=== PATIENT | male | born 1980 | race Caucasian/White ===

== ENCOUNTER → 2021-04-19 09:48 | Outpatient (REF) | payer MEDICARE, SELFPAY ==
--- NOTE | 2021-04-19 09:56 | ECG_ITS ---
Test Reason : QT PROLONGNATION Blood Pressure : / mmHG Vent. Rate : 044 BPM Atrial Rate : 044 BPM P-R Int : 120 ms QRS Dur : 088 ms QT Int : 454 ms P-R-T Axes : 057 013 062 degrees QTc Int : 388 ms Marked sinus bradycardia Abnormal ECG No previous ECGs available Referred By: Fanny Merritt Electronically Signed By:
== END ==
LOC: HO.CARD 09:48
PROVIDERS: Visit Provider Family Medicine
DX: Z79.899 Other long term (current) drug therapy (principal)
CPT/HCPCS: 93005

== ENCOUNTER 2021-05-26 16:09 | Emergency (ER) | payer MEDICARE, SELFPAY ==
--- NOTE | ~2021-05-26 | XR_ITS ---
EXAMINATION: XR CHEST CLINICAL INFORMATION: Shortness of breath COMPARISON: None TECHNIQUE: Frontal view of the chest was obtained. FINDINGS: Normal symmetric lung volumes. Subsegmental atelectasis, left lung base. No parenchymal consolidation. No pleural effusion. No pneumothorax. Cardiomediastinal silhouette and pulmonary vascularity are within normal limits. No acute osseous abnormalities. XR/XR chest 1V IMPRESSION: Unremarkable examination.
[2021-05-26 16:10] VITALS: BP 128/68; PULSE 82; RESP 20; TEMP 36.4; O2SAT 97; BMI 38.0
--- NOTE | 2021-05-27 | ECG_ITS ---
Test Reason : weakness Blood Pressure : / mmHG Vent. Rate : 069 BPM Atrial Rate : 069 BPM P-R Int : 162 ms QRS Dur : 102 ms QT Int : 462 ms P-R-T Axes : 043 073 023 degrees QTc Int : 495 ms Normal sinus rhythm Prolonged QT Abnormal ECG When compared with ECG of 19-APR-2021 10:09, No significant change was found Referred By: Generic ED Physician Electronically Signed By:AL ACOSTA
[2021-05-27 02:28] VITALS: BP 119/55; PULSE 63; RESP 16; O2SAT 98
[2021-05-27 02:58] LABS: Basophils Percent Auto 0.5 % (0-2); Eosinophils Percent Auto 0.9 % (0-4); Hemoglobin 11.4 g/dl (14.0-18.0); Imm Gran Abs Auto 0.01 X10*3/uL (0.00-0.03); Imm Gran Pct Auto 0.5 % (0.0-0.4); Lymphocytes Absolute Auto 0.6 X10*3/uL (1.2-4.9); Lymphocytes Percent Auto 29.2 % (20-40); MANUAL DIFF FLAG SCAN; Mean Corpuscular HGB Conc 33.5 g/dl (31.0-36.0); Mean Corpuscular Hemoglobin 30.3 pg (27.0-33.0); Mean Corpuscular Volume 90.4 fL (80.0-98.0); Mean Platelet Volume 11.9 fL (9.4-12.4); Monocytes Absolute Auto 0.3 X10*3/uL (0.1-1.2); Monocytes Percent Auto 12.3 % (2-11); Neutrophils Absolute Auto 1.2 x10*3/uL (2.0-8.3); Neutrophils Percent Auto 56.6 % (45-73); Red Blood Count 3.76 X10*6/uL (4.60-5.80); Red Cell Distribution Width 16.6 % (11.0-16.0); SCAN SMEAR FLAG 1
[2021-05-27 03:16] LABS: Alanine Aminotransferase 83 U/L (0-40); Albumin Level 3.1 g/dL (3.5-5.0); Alkaline Phosphatase 111 U/L (39-117); Anion Gap 9 (12-20); Aspartate Amino Transferase 94 U/L (5-37); Bilirubin Total 1.1 mg/dL (0.0-1.0); Blood Urea Nitrogen 7 mg/dL (9-16); Calcium 8.1 mg/dL (8.4-10.2); Carbon Dioxide 29 mmol/L (22-29); Chloride 104 mmol/L (96-108); Estimated Glomerular Filt Rate > 60; Glucose Random 100 mg/dL (60-115); Potassium 3.9 mmol/L (3.3-5.1); Sodium 138 mmol/L (135-145); Total Protein 7.1 g/dL (6.5-8.0)
[2021-05-27 03:17] LABS: Platelet Count 36 X10*3/uL (160-400); White Blood Count 2.2 X10*3/uL (4.8-10.8)
[2021-05-27 03:20] LABS: B Type Natriuretic Peptide 53 pg/mL (<100); Troponin-I High Sensitivity 4.1 ng/L (<3.5-35.0)
[2021-05-27 03:22] LABS: SLIDE REVIEW VERIFIED
[2021-05-27 04:33] VITALS: BP 112/65; PULSE 70; RESP 18; TEMP 36.5; O2SAT 99
--- NOTE | 2021-05-27 04:39 | ED_ITS ---
HPI - General Adult General Chief complaint: Extremity Problem Stated complaint: Both legs are swollen Time Seen by Provider: 05/27/21 04:16 Source: patient Mode of arrival: ambulatory Limitations: no limitations History of Present Illness HPI narrative: 40-year-old male who presents emergency department for evaluation of bilateral lower extremity swelling and pain. He states that the the symptoms have come on over the past week. He states that both of his legs are very swollen and he states that he is having moderate to severe dull pain in both legs. He states that he had a similar problem proximally 1 year prior secondary to cirrhosis of the liver. He states that that time he was on Lasix and spironolactone but he stopped these medications ?a long time ago ?. He denied fever, chills, chest pain, shortness of breath, dyspnea on exertion. 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 Related Data Previous Rx's Medication Instructions Recorded furosemide 40 mg tablet (Lasix) 60 mg PO QAM 30 Days #45 tab 05/27/21 spironolactone 50 mg tablet 50 mg PO BID 30 Days #60 tab 05/27/21 Allergies Allergy/AdvReac Type Severity Reaction Status Date / Time No Known Allergies Allergy Verified 05/26/21 16:17 Review of Systems Review of Systems: Yes all other systems are reviewed and are negative [facility] Past Medical History [facility] Narrative: Past medical history: GERD, cirrhosis, hepatitis-C, depression, anxiety. Past surgical history: None. Social history: Patient is currently living in a sober house for the last 3 months located in [place]. He smokes 1 pack of cigarettes per day times 25 years. He denies alcohol use. He states that he has not used drugs since he has been in the longterm house and in the methadone clinic. Medical History Anemia Anxiety Bipolar disorder Depression Hepatitis C Liver cirrhosis Social History Social History Advance Directives: No Advance Directives Information Provided: No Physical Exam Vital Signs: Vital Signs: Last Vital Signs Temp 97.7 F 05/27/21 04:33 Pulse 70 01/15/22 04:33 Resp 18 05/27/21 04:33 BP 112/65 05/27/21 04:33 Pulse Ox 99 05/27/21 04:33 BMI result Body Mass Index 38.0 Const: General: cooperative and no acute distress Orientation/consciousness: oriented to person and oriented to place Limitations: no limitations HENMT: Head: Yes normal to inspection, Yes normocephalic and Yes atraumatic Ears: external ears normal General nose exam: Normal external nose present Face and sinus: Yes normal facial exam Mouth: Normal oral and palatal mucosa present Throat: Yes posterior oropharynx normal Eyes: General: appearance normal, both eyes and all related structures Pupils: Equal, round and reactive pupils present Neck: Neck: Yes normal visual inspection, Yes no lymphadenopathy, Yes trachea midline and Yes supple Chest: Chest palpation & inspection: normal inspection of the chest and normal palpation of entire chest wall Resp: Effort & Inspection: normal respiratory effort and able to speak in complete sentences Auscultation: clear to auscultation bilaterally Cardio: Rate: regular rate Rhythm: regular rhythm Heart sounds: S1 normal heart sound present, S2 normal heart sound present and no murmurs GI: Inspection: Yes normal to inspection and Yes obesity Palpation (GI): Soft to palpation, nontender and no guarding Auscultation: normal bowel sounds : General: Yes no CVA tenderness Back/Spine/Pelvis: Back: no CVA tenderness Skin: General skin exam: no rashes or lesions noted Neuro: General: oriented to person and oriented to place Cranial nerves: Yes CN's II-XII intact bilaterally and Yes Equal, round and reactive pupils present Cognition (Neuro): normal cognition Motor exam (neuro): 5/5 motor strength present throughout Extrem: Other: 1+ pitting edema, bilaterally symmetric Psych: Appearance: grossly normal Speech and movement: Normal speech and movement present Affect: normal affect Attitude: cooperative Thought process: Normal thought process present Thought content: Normal thought content present Course Course Course Narrative: 40-year-old male with a history of hepatitis-C and cirrhosis which is untreated who presents emergency department for evaluation of bilateral lower extremity swelling x1 week. He is also having pain in both legs. The patient's vital signs were unremarkable. Physical examination did reveal bilateral lower extremity pitting edema. Laboratory evaluation revealed a pancytopenia with a WBC of 2200, H&H of 11.4 and 34 [place] [address]. This is most likely chronic secondary to his hepatitis C and cirrhosis. The patient had an elevated AST and ALT of 94 and 83 with a bilirubin of 1.1. The patient's BNP was 53. I did discuss management of peripheral edema and ascites with the patient. The patient will be started on Lasix 60 mg once a day and spironolactone 50 mg twice a day. Patient was given verbal and printed instructions and advised to follow-up with his PCP in 1 week for re-evaluation. Medical Decision Making Lab Data Result diagrams: 05/27/21 02:51 05/27/21 02:51 Labs: Lab Results 05/27/21 05/27/21 05/27/21 Range/Units 02:51 02:51 02:51 WBC 2.2 L (4.8-10.8) X10*3/uL RBC 3.76 L (4.60-5.80) X10*6/uL Hgb 11.4 L (14.0-18.0) g/dl Hct 34.0 L (42.0-52.0) % MCV 90.4 (80.0-98.0) fL MCH 30.3 (27.0-33.0) pg MCHC 33.5 (31.0-36.0) g/dl RDW 16.6 H (11.0-16.0) % Plt Count 36 L (160-400) X10*3/uL MPV 11.9 (9.4-12.4) fL Immature Gran % (Auto) 0.5 H (0.0-0.4) % Neut % (Auto) 56.6 (45-73) % Lymph % (Auto) 29.2 (20-40) % [place] % (Auto) 12.3 H (2-11) % Eos % (Auto) 0.9 (0-4) % Baso % (Auto) 0.5 (0-2) % Lymph # (Auto) 0.6 L (1.2-4.9) X10*3/uL [place] # (Auto) 0.3 (0.1-1.2) X10*3/uL Eos # (Auto) 0.0 (0.0-0.4) X10*3/uL Baso # (Auto) 0.0 (0.0-0.2) X10*3/uL Abs Immat Gran (auto) 0.01 (0.00-0.03) X10*3/uL Absolute Neuts (auto) 1.2 L (2.0-8.3) x10*3/uL Absolute Nucleated RBC 0.000 (0.0-0.012) X10*3/uL Nucleated RBC % (auto) 0.0 (0.0-0.2) /100WBC Smear Tech's Comments VERIFIED Sodium 138 (135-145) mmol/L Potassium 3.9 (3.3-5.1) mmol/L Chloride 104 (96-108) mmol/L Carbon Dioxide 29 (22-29) mmol/L Anion Gap 9 L (12-20) BUN 7 L (9-16) mg/dL Creatinine 0.72 (0.5-1.4) mg/dL Estim Creat Clear Calc 184.0 Estimated GFR > 60 Random Glucose 100 (60-115) mg/dL Calcium 8.1 L (8.4-10.2) mg/dL Total Bilirubin 1.1 H (0.0-1.0) mg/dL AST 94 H (5-37) U/L ALT 83 H (0-40) U/L Alkaline Phosphatase 111 (39-117) U/L Troponin I High Sens 4.1 (<3.5-35.0) ng/L B-Natriuretic Peptide 53 (<100) pg/mL Total Protein 7.1 (6.5-8.0) g/dL Albumin 3.1 L (3.5-5.0) g/dL Discharge Plan Discharge Clinical Impression: Edema, peripheral Cirrhosis Qualifiers: Hepatic cirrhosis type: other cirrhosis Qualified Code(s): K74.69 - Other cirrhosis of liver Hepatitis C Qualifiers: Viral hepatitis chronicity: chronic Hepatic coma status: without hepatic coma Qualified Code(s): B18.2 - Chronic viral hepatitis C Patient Disposition: Home, Self-Care Instructions: Cirrhosis (ED), Edema (ED) Additional Instructions: This swelling and pain in your lower legs is caused by hepatitis C and cirrhosis of her liver. I am starting you on diuretics (water pills) to help get fluid off your body. While you taking knees water pills she restrict the amount of fluid that you drink, only drink when your thirsty, the goal is to try to get you to pee out more fluid than you drink in. Take Lasix (furosemide) 40 mg pills, 1 and 1/2 pill in the morning. This medication will make you pee for approximately 6 hours. Take spironolactone 50 mg pills, 1 pill every 12 hours. Follow-up with your doctor in 2 days. Please return to the emergency department if your symptoms get worse or if you develop any symptoms that are concerning to you. Prescriptions: New furosemide [Lasix] 40 mg tablet 60 mg PO QAM 30 Days Qty: 45 RF: 0 spironolactone 50 mg tablet 50 mg PO BID 30 Days Qty: 60 RF: 0
== END 2021-05-27 05:18 | disposition home or self-care (01) ==
PROVIDERS: Emergency Provider Emergency Medicine Emergency Medical Services
DX: R60.0 Localized edema (principal); K74.69 Other cirrhosis of liver; B18.2 Chronic viral hepatitis C; R06.02 Shortness of breath; M79.605 Pain in left leg; M79.604 Pain in right leg; F17.210 Nicotine dependence, cigarettes, uncomplicated; Z71.6 Tobacco abuse counseling; Z79.899 Other long term (current) drug therapy
CPT/HCPCS: 36415; 71045; 80053; 83880; 84484; 85025; 93005; 99283; 99284

== ENCOUNTER 2022-04-04 16:28 | Emergency (ER) | payer MEDICARE, SELFPAY ==
--- NOTE | ~2022-04-04 | US_ITS ---
EXAMINATION: US VENOUS ULTRASOUND WITH DOPPLER LOWER EXTREMITY, BILATERAL CLINICAL INFORMATION: Edema. COMPARISON: None TECHNIQUE: Ultrasound of the deep veins is performed from the hip to the calf with compression sonography and color and pulse Doppler assessment. Spectral analysis with color-flow imaging is performed. FINDINGS: RIGHT: There is normal venous compression and respiratory variation and augmented flow. The visualized common femoral vein, superficial femoral vein, profunda femoral vein, popliteal vein, and the trifurcation region shows no evidence of deep venous thrombosis. There is no significant popliteal fossa cyst. LEFT: There is normal venous compression and respiratory variation and augmented flow. The visualized common femoral vein, superficial femoral vein, profunda femoral vein, popliteal vein, and the trifurcation region shows no evidence of deep venous thrombosis. There is no significant popliteal fossa cyst. If the patient's symptoms persist, followup ultrasound in 5 days 7 days might be of value to exclude proximal propagation from a non-visualized calf vein. US/US venous duplex LE BI IMPRESSION: No DVT demonstrated in the bilateral lower extremity.
[2022-04-04 16:39] VITALS: BP 117/58; PULSE 84; RESP 20; TEMP 36.1; O2SAT 99; BMI 36.6
--- NOTE | 2022-04-04 17:03 | ED_ITS ---
HPI - Medical Clearance General Chief complaint: Medical Clearance Stated complaint: edema, recovery program, legs are black/ swollen Time Seen by Provider: 04/04/22 17:00 Source: patient Mode of arrival: ambulatory History of Present Illness HPI Narrative: 41-year-old male with past medical history of anemia, anxiety, bipolar, depression, hepatitis-C, liver cirrhosis, presenting to the ED for medical clearance. Patient reports acute on chronic bilateral lower extremity edema and left lower extremity erythema and warmth x 3-4 days. Reports he has been sober since 02/22/22. Difficult to obtain history from patient as lethargic/appears under the influence and falling asleep during evaluation. Denies fever, chills, injury/trauma, SOB/CP MD complaint: medical clearance requested Onset (ago): day(s) Related Information Previous Rx's Medication Instructions Recorded furosemide 40 mg tablet (Lasix) 60 mg PO QAM 30 days #45 tabs 05/27/21 spironolactone 50 mg tablet 50 mg PO BID 30 days #60 tabs 05/27/21 bacitracin 500 unit/gram topical 1 appl topical BID #30 grams 04/04/22 ointment cephalexin 500 mg capsule 500 mg PO QID 7 days #28 caps 04/04/22 doxycycline hyclate 100 mg tablet 100 mg PO BID 7 days #14 tabs 04/04/22 Allergies Allergy/AdvReac Type Severity Reaction Status Date / Time No Known Allergies Allergy Verified 05/26/21 16:17 Review of Systems Review of Systems: Constitutional: No Fever, No Chills, No Fatigue, No Malaise ENT/Mouth: No Ear Pain, No Nasal Congestion, No sore throat, No Rhinorrhea, No Swallowing Difficulty Eyes: No Eye Pain, No Swelling, No Discharge, No Vision Changes Cardiovascular: No Chest Pain, No SOB, No Dyspnea on Exertion, No Orthopnea, + Edema, No Palpitations Respiratory: No Cough, No Sputum, No Dyspnea Gastrointestinal: No Nausea, No Vomiting, No Diarrhea, No Constipation, No Abdominal pain Genitourinary: No Dysuria, No Hematuria, No Flank Pain, No Urinary Flow Changes, No Hesitancy Musculoskeletal: No joint pain, No Myalgias, No Joint Swelling Skin: + Skin Lesions, No rash Neuro: No Weakness, No Dizziness, No Headache Psych: No Anxiety/Panic, No Depression, No SI/HI, No Social Issues Yes all other systems are reviewed and are negative Constitutional: Constitutional: Reports as per [facility] Past Medical History Attestation statement: The following information was validated with the patient. Medical History Anemia Anxiety Bipolar disorder Depression Hepatitis C Liver cirrhosis Social History Social History Advance Directives: No Advance Directives Information Provided: Yes Physical Exam Vital Signs: Vital Signs: Last Vital Signs Temp 97.0 F 04/04/22 16:39 Pulse 84 04/04/22 16:39 Resp 20 04/04/22 16:39 BP 117/58 L 04/04/22 16:39 Pulse Ox 99 04/04/22 16:39 O2 Del Method 04/04/22 16:39 BMI result Body Mass Index 36.6 Const: Other: Appears under the influence, lethargic General: cooperative and no acute distress Orientation/consciousness: patient oriented x3 Limitations: no limitations HEENT: Head: Yes normal to inspection and Yes atraumatic Ears: hearing grossly normal bilaterally General nose exam: Normal external nose present Face and sinus: Yes normal facial exam Eyes: General: appearance normal, both eyes and all related structures EOM: EOMs intact bilaterally Neck: Neck: Yes normal visual inspection and Yes no meningeal signs Resp: Effort & Inspection: normal respiratory effort and no respiratory distress Auscultation: clear to auscultation bilaterally, no crackles and no rhonchi Cardio: Rate: regular rate Heart sounds: S1 normal heart sound present and S2 normal heart sound present GI: Inspection: Yes normal to inspection Palpation (GI): Soft to palpation, nontender, no guarding and not rigid Skin: Rashes: no rashes Neuro: General: patient oriented x3, tone normal, no meningeal signs and CN's II-XI intact bilaterally Gait exam (Neuro): Normal gait present Extrem: Other: + bilateral lower extremity venous stasis changes and pitting edema > left. Left lower extremity with noted erythema and warmth. Open wounds bilaterally with slight clear drainage. No fluctuance/induration. Neurovascular intact d istally. Course Course Course Narrative: US venous duplex LE IMPRESSION: No DVT demonstrated in the bilateral lower extremity. ? -2009--pancytopenic likely from liver cirrhosis > patient denies rectal bleeding/melena or hematuria -lactic acid negative -chronic transaminitis. BNP mildly elevated to 138 -patient admits he has Lasix and spironolactone at home, encouraged compliance with medications Results discussed with patient including worrisome signs and symptoms and strict return precautions, and when to return to the emergency department. They verbalized understanding and feel safe for discharge at this time. MDM - Medical Clearance MDM Narrative Medical decision making narrative: 41-year-old male with past medical history of anemia, anxiety, bipolar, depr ession, hepatitis-C, liver cirrhosis, presenting to the ED for medical clearance. Patient reports acute on chronic bilateral lower extremity edema and left lower extremity erythema and warmth x 3-4 days. On exam vital signs stable, NAD, appears under the influence, falling asleep during evaluation, bilateral lower extremity pitting edema noted greater on the left with left lower extremity warmth and erythema. Concern for acute on chronic peripheral edema vs cellulitis vs DVT vs CHF. Low suspicion for PE/ACS Low suspicion for severe sepsis Plan: Labs, lactic/blood cultures, venous duplex ultrasound, drug screen, care team consult for recovery Medical Records Attestation: I reviewed the patient's medical records. Lab Data Attestation: I reviewed the patient's lab results. Result diagrams: 04/04/22 19:41 04/04/22 19:41 Labs: Lab Results 04/04/22 04/04/22 04/04/22 Range/Units 19:41 19:41 19:41 WBC 2.6 L (4.8-10.8) X10*3/uL RBC 2.79 L D (4.60-5.80) X10*6/uL Hgb 8.3 L D (14.0-18.0) g/dl Hct 25.5 L D (42.0-52.0) % MCV 91.4 (80.0-98.0) fL MCH 29.7 (27.0-33.0) pg MCHC 32.5 (31.0-36.0) g/dl RDW 14.4 (11.0-16.0) % Plt Count 33 L (160-400) X10*3/uL MPV TNP Immature Gran % (Auto) 0.4 (0.0-0.4) % Neut % (Auto) 62.3 (45-73) % Lymph % (Auto) 22.9 (20-40) % [place] % (Auto) 13.2 H (2-11) % Eos % (Auto) 0.8 (0-4) % Baso % (Auto) 0.4 (0-2) % Lymph # (Auto) 0.6 L (1.2-4.9) X10*3/uL [place] # (Auto) 0.3 (0.1-1.2) X10*3/uL Eos # (Auto) 0.0 (0.0-0.4) X10*3/uL Baso # (Auto) 0.0 (0.0-0.2) X10*3/uL Abs Immat Gran (auto) 0.01 (0.00-0.03) X10*3/uL Absolute Neuts (auto) 1.6 L (2.0-8.3) x10*3/uL Absolute Nucleated RBC 0.000 (0.0-0.012) X10*3/uL Nucleated RBC % (auto) 0.0 (0.0-0.2) /100WBC Smear Tech's Comments VERIFIED PT 17.1 H (10.0-13.1) SEC INR 1.5 H (0.9-1.1) Sodium 137 (135-145) mmol/L Potassium 4.0 (3.3-5.1) mmol/L Chloride 106 (96-108) mmol/L Carbon Dioxide 26 (22-29) mmol/L Anion Gap 9 L (12-20) BUN 9 (9-16) mg/dL Creatinine 0.61 (0.5-1.4) mg/dL Estim Creat Clear Calc 211.0 Estimated GFR > 60 Random Glucose 93 (60-115) mg/dL Lactic Acid (0.5-2.0) mmol/L Calcium 7.8 L (8.4-10.2) mg/dL Magnesium 1.9 (1.6-2.6) mg/dL Total Bilirubin 1.0 (0.0-1.0) mg/dL Direct Bilirubin 0.5 (0.0-0.5) mg/dL AST 54 H (5-37) U/L ALT 46 H (0-40) U/L Alkaline Phosphatase 92 (39-117) U/L B-Natriuretic Peptide (<100) pg/mL Total Protein 6.8 (6.5-8.0) g/dL Albumin 2.8 L (3.5-5.0) g/dL Ethyl Alcohol mg/dL 04/04/22 04/04/22 04/04/22 Range/Units 19:41 19:41 19:41 WBC (4.8-10.8) X10*3/uL RBC (4.60-5.80) X10*6/uL Hgb (14.0-18.0) g/dl Hct (42.0-52.0) % MCV (80.0-98.0) fL MCH (27.0-33.0) pg MCHC (31.0-36.0) g/dl RDW (11.0-16.0) % Plt Count (160-400) X10*3/uL MPV Immature Gran % (Auto) (0.0-0.4) % Neut % (Auto) (45-73) % Lymph % (Auto) (20-40) % [place] % (Auto) (2-11) % Eos % (Auto) (0-4) % Baso % (Auto) (0-2) % Lymph # (Auto) (1.2-4.9) X10*3/uL [place] # (Auto) (0.1-1.2) X10*3/uL Eos # (Auto) (0.0-0.4) X10*3/uL Baso # (Auto) (0.0-0.2) X10*3/uL Abs Immat Gran (auto) (0.00-0.03) X10*3/uL Absolute Neuts (auto) (2.0-8.3) x10*3/uL Absolute Nucleated RBC (0.0-0.012) X10*3/uL Nucleated RBC % (auto) (0.0-0.2) /100WBC Smear Tech's Comments PT (10.0-13.1) SEC INR (0.9-1.1) Sodium (135-145) mmol/L Potassium (3.3-5.1) mmol/L Chloride (96-108) mmol/L Carbon Dioxide (22-29) mmol/L Anion Gap (12-20) BUN (9-16) mg/dL Creatinine (0.5-1.4) mg/dL Estim Creat Clear Calc Estimated GFR Random Glucose (60-115) mg/dL Lactic Acid 1.0 (0.5-2.0) mmol/L Calcium (8.4-10.2) mg/dL Magnesium (1.6-2.6) mg/dL Total Bilirubin (0.0-1.0) mg/dL Direct Bilirubin (0.0-0.5) mg/dL AST (5-37) U/L ALT (0-40) U/L Alkaline Phosphatase (39-117) U/L B-Natriuretic Peptide 138 H (<100) pg/mL Total Protein (6.5-8.0) g/dL Albumin (3.5-5.0) g/dL Ethyl Alcohol < 10 mg/dL Discharge Plan Discharge Clinical Impression: Pedal edema, Cellulitis Patient Disposition: Home, Self-Care Instructions: Cellulitis (ED), Edema (ED) Additional Instructions: Your ultrasound was unremarkable. Your blood work shows evidence of chronic liver cirrhosis Doxycycline and Keflex are antibiotics please take as prescribed for your lower extremity infection Elevate your legs Use Ifeanyi wraps for compression Continue to take your Lasix and spironolactone If swelling persists or worsens, he developed shortness of breath, fever, worsening discoloration of her legs return to the emergency department Prescriptions: New bacitracin 500 unit/gram ointment 1 appl topical BID Qty: 30 0RF cephalexin 500 mg capsule 500 mg PO QID 7 Days Qty: 28 0RF doxycycline hyclate 100 mg tablet 100 mg PO BID 7 Days Qty: 14 0RF No Action furosemide [Lasix] 40 mg tablet 60 mg PO QAM 30 Days Qty: 45 0RF spironolactone 50 mg tablet 50 mg PO BID 30 Days Qty: 60 0RF Referrals: Shayy Haynes PA [Primary Care Provider] - 5 days
--- NOTE | 2022-04-04 19:17 | MHC.CARE ---
Care Team received a consult for detox. Care Team met with pt in [facility] and he declined detox services.
--- NOTE | 2022-04-04 19:47 | PC.NURSE ---
Labs, blood cultures x2 collected and sent as ordered
[2022-04-04 19:52] LABS: Basophils Percent Auto 0.4 % (0-2); Eosinophils Percent Auto 0.8 % (0-4); Hemoglobin 8.3 g/dl (14.0-18.0); Imm Gran Abs Auto 0.01 X10*3/uL (0.00-0.03); Imm Gran Pct Auto 0.4 % (0.0-0.4); MANUAL DIFF FLAG SCAN; SCAN SMEAR FLAG 1
[2022-04-04 19:54] LABS: Hematocrit 25.5 % (42.0-52.0); Lymphocytes Absolute Auto 0.6 X10*3/uL (1.2-4.9); Lymphocytes Percent Auto 22.9 % (20-40); Mean Corpuscular HGB Conc 32.5 g/dl (31.0-36.0); Mean Corpuscular Hemoglobin 29.7 pg (27.0-33.0); Mean Corpuscular Volume 91.4 fL (80.0-98.0); Monocytes Absolute Auto 0.3 X10*3/uL (0.1-1.2); Monocytes Percent Auto 13.2 % (2-11); Neutrophils Absolute Auto 1.6 x10*3/uL (2.0-8.3); Neutrophils Percent Auto 62.3 % (45-73); Red Blood Count 2.79 X10*6/uL (4.60-5.80); Red Cell Distribution Width 14.4 % (11.0-16.0); White Blood Count 2.6 X10*3/uL (4.8-10.8)
[2022-04-04 19:59] LABS: INTERNATIONAL NORM RATIO 1.5 (0.9-1.1); PLT ABN DIST 1; Prothrombin Time 17.1 SEC (10.0-13.1)
[2022-04-04 20:12] LABS: Platelet Count 33 X10*3/uL (160-400); SLIDE REVIEW VERIFIED
[2022-04-04 20:13] LABS: Ethanol < 10 mg/dL
[2022-04-04 20:17] LABS: B Type Natriuretic Peptide 138 pg/mL (<100)
[2022-04-04 20:23] LABS: Alanine Aminotransferase 46 U/L (0-40); Albumin Level 2.8 g/dL (3.5-5.0); Alkaline Phosphatase 92 U/L (39-117); Anion Gap 9 (12-20); Aspartate Amino Transferase 54 U/L (5-37); Bilirubin Direct 0.5 mg/dL (0.0-0.5); Blood Urea Nitrogen 9 mg/dL (9-16); Calcium 7.8 mg/dL (8.4-10.2); Carbon Dioxide 26 mmol/L (22-29); Chloride 106 mmol/L (96-108); Estimated Glomerular Filt Rate > 60; Glucose Random 93 mg/dL (60-115); Magnesium 1.9 mg/dL (1.6-2.6); Sodium 137 mmol/L (135-145); Total Protein 6.8 g/dL (6.5-8.0)
== END 2022-04-04 21:13 | disposition home or self-care (01) ==
PROVIDERS: Physician Assistant; Emergency Provider Emergency Medicine; PCP Physician Assistant
DX: R60.0 Localized edema (principal); L03.116 Cellulitis of left lower limb; L03.115 Cellulitis of right lower limb; R06.02 Shortness of breath; Z79.899 Other long term (current) drug therapy
CPT/HCPCS: 36415; 80048; 80076; 82077; 83605; 83735; 83880; 85025; 85610; 87040; 93970; 99282; 99284